=== PATIENT | female | born 1950 | race Caucasian/White ===

== ENCOUNTER 2022-10-08 10:01 | Outpatient (CLI) | payer MEDICARE, SELFPAY ==
[2022-10-08 12:50] LABS: Albumin* 4.4 g/dL (3.3-5.0); Chloride* 109 mmol/L (96-114)
[2022-10-08 12:51] LABS: Potassium* 4.1 mmol/L (3.6-5.1); Sodium* 144 mmol/L (135-149)
[2022-10-08 12:53] LABS: Alkaline Phosphatase* 49 U/L (40-150); Aspartate Amino Transferase* 31 U/L (12-35); Bilirubin Total* 1.1 mg/dL (0.1-1.5); Blood Urea Nitrogen* 23 mg/dL (7-30); Carbon Dioxide* 26 mmol/L (20-32); Creatinine* 0.8 mg/dL (0.5-1.5); Estimated Glomerular Filt Rate 78 ml/min; Glucose* 82 mg/dL (60-115); Total Protein* 7.2 g/dL (6.0-8.3)
[2022-10-08 12:54] LABS: Alanine Aminotransferase* 27 U/L (4-35); Calcium* 9.8 mg/dL (8.4-10.6)
== END 2022-10-08 10:02 | disposition home or self-care (01) ==
PROVIDERS: PCP Internal Medicine; Visit Provider Internal Medicine
DX: L65.9 Nonscarring hair loss, unspecified (principal); I10 Essential (primary) hypertension
CPT/HCPCS: 80053; 84443

== ENCOUNTER 2023-02-04 09:10 | Outpatient (CLI) | payer MEDICARE, SELFPAY | END 2023-02-04 09:11 | disposition home or self-care (01) | LOC: NFLDREF 18:39 | PROVIDERS: PCP Internal Medicine; Referring Provider Internal Medicine; Visit Provider Internal Medicine | DX: E78.5 Hyperlipidemia, unspecified (principal) | CPT/HCPCS: 80053; 80061 ==

== ENCOUNTER 2023-03-24 10:45 | Outpatient (RCR) | payer MEDICARE, SELFPAY ==
--- NOTE | 2023-02-25 09:32 | PT.OPEX ---
PT [place] Outpatient Eval INITIAL EVAL MEDICARE REQUIRES SIGNATURE PT [facility] Outpatient Eval Start: 02/25/23 07:38 Freq: Status: Active Protocol: Document 02/25/23 07:39 TRESA (Rec: 02/25/23 09:28 TRESA [id number]) E-signed By ULISES [facility] Insurance Information Recert Due Date 05/21/23 Insurance Name Medicare B,[employer] Medical Diagnosis shoulder bursitis Treating Diagnosis R shoulder pain muscle weakness limited ROM Referring MD chantal bains Subjective Subjective Radha comes into clinic dealing with R shoulder pain. Did have breast cancer on her left side so does end up using her R arm more. Overall it is dull and deep pain. States this has been going on several months now and started to feel the ache, after scratching her partners back. Does have some concern if its related to her heart condition . IT does not make her stop doing anything but she can notice the slight nag. When she reaches into the fridge for things or overhead she is noticing she is using the left hand more. Sleeping initially pain when laying on the R side but is improved. Pain Comments 3/10 is the worst Current Work Status Retired Precautions Treatment Precautions/Contraindications CAD, hx breast cancer, stent placement Objective Other/Pertinent Objective SHOULDER AROM WNL B but more effort on the R side to get to end ranges NECK/SHOULDER MMT: WNL L Shoulder shrug: R 5/5 Shoulder flexion: R 4/5 Shoulder abduction: R 4/5 Shoulder External Rotation: R 4-/5 Shoulder Internal Rotation: R 4+/5 Elbow flexion: R 5/5 Elbow extension R 5/5 SPECIAL TEST Shoulder impingement HawkinsKeviny Test: - Neer Test: - Abdifatah Test: - Horizontal Adduction Test:- Painful arc 60-120 scaption: + Rotator cuff tendonitis Speeds test(biceps): - Empty can(Supra): - Lift off test (subscap):- JOINT MOBILITY/PALPATION increased R>L upper trap tightness TX: STM upper trap and cervical extensors scaption ag x 20 B shoulder alphabet x 26 scap set x 20, adding red tb x 20 Assessment Assessment/Impression .assess Pt is a 73 yr old female who presents with concerns of R shoulder pain . . Patient also has notable objective findings including limited painfree ROM, , decreased strength also likely contributing to the problem. Patient is a good candidate for skilled therapy to target deficits described above. Skilled PT intervention is necessary for use of therapeutic exercise manual therapy, neuromuscular re- education, , and therapeutic activity. Functional impairments include difficulty with: reaching away from body , sleeping, lifting . See appropriate sections of PT eval for complete list of goals and POC. D/C plan and criteria is for pt to achieve the goals as listed below or until max rehab potential is met. 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 LTG Patient will report or demonstrate the ability to have 4+/5 strength in all shoulder and elbow planes for household and recreational activity within8 weeks. Pt will be independent with HEP within 8 weeks to allow for independence and continued improvement past formal therapy Pt will be able to demonstrate / report ability to lift #10 from counter height to overhead without pain within 8 weeks, for household and work activity. Coordination/Communication With Referral Source Treatment Plan/Direct Interventions Joint Mobilization,Manual Therapy,Neuromuscular Re-ed, Therapeutic Activities, Therapeutic Exercises Frequency/Duration 1-2 x week for 6-12 weeks Patient Will Be Discharged From Therapy Completion of LTG(s), Independent w/HEP Evaluation Billing Untimed Code Treatment Minutes 25 Complexity Low Certification Information Initial Certification Date 02/25/23 Ending Certification Date 05/21/23 Physician Comment/Change : Physician NPI Number #
== END 2023-05-03 11:29 | disposition home or self-care (01) ==
PROVIDERS: PCP Internal Medicine; Visit Provider Internal Medicine
DX: M75.50 Bursitis of unspecified shoulder (principal); M25.511 Pain in right shoulder; M62.81 Muscle weakness (generalized); Z51.89 Encounter for other specified aftercare
CPT/HCPCS: 97110; 97140; 97161

== ENCOUNTER 2023-09-02 07:33 | Day surgery (SDC) | payer MEDICARE, SELFPAY ==
[2023-09-02] VITALS (23 sets, daily range): BP systolic 101–173; BP diastolic 47–87; PULSE 58–84; RESP 14–20; TEMP 35.6–36.7; O2SAT 93–100; BMI 26.9
[2023-09-02] MEDS: LACTATED RINGERS 1000 ML 1,000 ML 100 ML IV ×2 (08:40→10:11)
[2023-09-02] MEDS: ACETAMINOPHEN 500 MG TABLET 1000 MG PO ×3 (08:40→20:44)
[2023-09-02] MEDS: OXYCODONE (CR) 10 MG TAB.ER.12H PO (08:40)
[2023-09-02] MEDS: MIDAZOLAM HCL 1 MG/ML inj IVP (08:45)
[2023-09-02] MEDS: fentaNYL 100 MCG/2 ML inj IVP (08:45)
[2023-09-02] MEDS: TRANEXAMIC ACID 100 MG/ML INJ 1000 MG IV (09:02)
[2023-09-02] MEDS: CEFAZOLIN 2 GM INJ IVP (09:05)
[2023-09-02] MEDS: SODIUM CHLORIDE 0.9 % (FLUSH) 10 ML SYRINGE IVF (09:09)
--- NOTE | 2023-09-02 09:09 | SUR.PREOP ---
TIME?OUT:?right hip PT/RN/MDA?VERIFICATION?OF?SURGICAL?SITE,?PROCEDURE,?AND?CONSENT OBTAINED?PRIOR?TO?INVASIVE?PROCEDURE.
--- NOTE | 2023-09-02 09:15 | CRLHL7_ITS ---
For Patients: As a result of the Cures Act, medical imaging exams and procedure reports are released immediately into your electronic medical record. You may view this report before your referring provider. If you have questions, please contact your health care provider. Indication: Hip replacement surgery Technique: AP hip fluoroscopic images. Fluoroscopy time 41.5 seconds. Findings/Impression: Hardware from a right total hip arthroplasty is in satisfactory position. Dictated by Dragan Ferrer MD @ 09/02/2023 11:15:28 AM (Electronically Signed)
--- NOTE | 2023-09-02 10:17 | CRLHL7_ITS ---
For Patients: As a result of the Cures Act, medical imaging exams and procedure reports are released immediately into your electronic medical record. You may view this report before your referring provider. If you have questions, please contact your health care provider. Indication: Postop MARLO Technique: AP hip centered pelvis and lateral view right hip Findings/Impression: Hardware from a right total hip arthroplasty is in satisfactory position. Bone alignment is normal. No sign of acute fracture. Postop changes are within normal limits. Dictated by Dragan Ferrer MD @ 09/02/2023 12:01:45 PM (Electronically Signed)
--- NOTE | 2023-09-02 10:20 | PM.ORPRC ---
Procedure Note Date of procedure: 09/02/23 Procedure: PREOPERATIVE DIAGNOSIS: Right hip osteoarthritis POSTOPERATIVE DIAGNOSIS: Right hip osteoarthritis NAME OF OPERATION: Right total hip arthroplasty SURGEON: Carl Bullock MD ROTARY SHEAR OPERATOR: Eliida Bishop PA-C, CIRILO Abdul IMPLANTS: 1. [employer] [place] # 52 sector ingrowth cup 2. 36 x 52 +4 neutral polyethylene 3. Actis # 6 standard collared ingrowth stem 4. 36 + 1.5 ceramic femoral head ANESTHESIA: General ESTIMATED BLOOD LOSS: 400 cc COMPLICATIONS: None SPECIMENS: None DRAINS: None PREOPERATIVE ANTIBIOTICS: Ancef 1 grams INDICATIONS: The patient is a 73-year-old with a longstanding history of severe, unrelenting right hip pain secondary to end-stage right hip osteoarthritis. Despite appropriate nonoperative management, including activity modification, use of an assist device, anti-inflammatories, [id number] pain medication, physical therapy and injections, they continue to have pain and disability. Operative intervention was offered. The risks, benefits and expected outcomes were discussed in detail. These included but were not limited to: Infection, bleeding, injury to blood vessel or nerve, venous thromboembolism. All questions were answered to their satisfaction. Use of an conservation assistant was necessary throughout the case for patient positioning and safety, soft tissue retraction and closure. PROCEDURE: The patient was placed supine on the [place] table. General anesthesia was administered. The conservation assistant made sure the patient was properly positioned. The right hip was prepped and draped in the usual sterile fashion. The image intensifier was brought in for a perfect AP pelvis and a perfect double tear drop AP view of each hip which were used for intraoperative templating with our fluoroscopic guide. An oblique incision was made 3 cm distal and 3 cm lateral to the anterior superior iliac spine. The conservation assistant retracted the soft tissues to protect them. Subcutaneous dissection was taken with electrocautery to the superficial fascia. The fascia was divided in line with the incision. Blunt dissection was carried medially to the tensor fascia kyara and sartorius interval. Deep dissection was carried with electrocautery. The circumflex vessels were cauterized and divided. The capsule was exposed and then divided in a T-fashion, tagged with #1 Ethibond sutures. Retractors were placed in the joint, held by the conservation assistant. The corkscrew was placed in the femoral head. The neck cut was made in the subcapital region. We made a second neck cut more distal. The napkin ring of bone was removed. The femoral head was removed intact. Acetabular retractors were placed, held by the conservation assistant. The labrum was sharply debrided. The capsule was released. The 43 mm reamer was used to the true medial wall. We then enlarged in 2 mm increments using the image intensifier for our reamer placement. We impacted the cup which had excellent purchase. We placed the hole eliminator and the polyethylene. Attention was then turned to the proximal femur. The limb was placed in 140 degrees of external rotation, maximum extension and adduction. A significant amount of time was spent releasing the capsule to allow us to deliver the femur into the wound and complete the femoral side safely. Retractors were held by the conservation assistant throughout the femoral preparation. The box stamper and canal finder were used. Broaches were used to a stable size. The calcar reamer was used. Trial components were placed. The hip was reduced and was found to be stable with appropriate soft tissue tension. Length and offset had been nicely restored using the image intensifier and our fluoroscopic guide. Trial components were removed. The stem was impacted. We placed the femoral head. Again, the hip was reduced and was found to be stable with appropriate soft tissue tension. Length and offset had been nicely restored. The conservation assistant did a three minute dilute Betadine solution soak. The conservation assistant irrigated the wound with 3 liters of normal saline via pulse lavage. The conservation assistant repaired the anterior capsule with a #1 Vicryl and our previously placed Ethibond sutures. The conservation assistant closed the fascia over the tensor fascia kyara with a #1 PDO Stratafix, subcutaneous tissues with 2-0 Vicryl, skin with a running 3-0 Stratafix and glue. A dry dressing was applied by the conservation assistant. Sponge and needle counts were correct x 2. The patient tolerated the procedure well; there were no apparent complications. They were awakened and extubated in the operating room, sent to the Post-Anesthesia Care Unit in satisfactory condition. PLAN: 1. The patient will be mobilized with physical therapy, weight-bearing as tolerates 2. Xarelto x 5 days then aspirin x 30 days will be used for DVT prophylaxis 3. The patient will be discharged once medically appropriate
--- NOTE | 2023-09-02 11:03 | P.ANES_ITS ---
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
--- NOTE | 2023-09-02 11:09 | W.ANESCHARGE ---
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
--- NOTE | 2023-09-02 11:11 | P.NB_ITS ---
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 Images saved: Yes Medications given in 5ml increments after negative aspiration: Ropivicaine %: 0.5 mL: 30 Needle gauge: 20 Decadron (mg): 10 Precedex (mcg): 25 Patient tolerated procedure well: Yes Additional comments: Needle noted below psoas tendon needle noted adjacent to LFCN Block Charges Block Charge (with Pro Fee): Other Periph Nerve Block Use of Ultrasound Machine for Block: Yes- US Guidance/pain block
--- NOTE | 2023-09-02 11:47 | SUR.OPER ---
PATIENT QUESTIONS ANSWERED SATISFACTORILY PREOPERATIVELY. PATIENT BROUGHT TO OR #3 PER CART AFTER ADMINISTRATION OF A BLOCK. Patient positioned supine on OR #3 bed. The perioperative team supported arms bilaterally on arm boards. Final approval of positioning by surgeon
[2023-09-02] MEDS: OXYCODONE 5 MG TABLET PO (12:23)
--- NOTE | 2023-09-02 12:59 | PM.IMCN1 ---
Date of Consult Patient: [facility] Patient Consult date: 09/02/23 Requesting Physician: Orthopedics Primary Care Provider: Andre Love MD Consult Narrative Reason for consult: Medical management Narrative: Radha Fleming is a 73 year old female past medical history significant for hypertension, hyperlipidemia, anxiety, renal insufficiency, osteoarthritis bilateral hips is POD#0 status post right total hip arthroplasty with Dr. Bullock. Patient reports pain is currently adequately managed following oral oxycodone. Denies headache or dizziness. Denies nausea, tolerating oral ice chips. There have been no perioperative complications reported. Total estimated blood loss reported as 400 mL. Updated and reviewed the active medical problems, past medical history, past surgical history, social history, allergies and medications in our electronic EMR. Review of Systems Narrative: REVIEW OF SYSTEMS: Complete review of systems performed and negative unless otherwise stated in HPI or below. PFSH PFSH Medical History Hip pain ?M25.559 - Pain in unspecified hip (ICD-10) Deltoid bursitis ?M75.50 - Bursitis of unspecified shoulder (ICD-10) Hair loss ?L65.9 - Nonscarring hair loss, unspecified (ICD-10) History of pulmonary embolism ?Z86.711 - Personal history of pulmonary embolism (ICD-10) History of malignant neoplasm of breast (2004) ?Z85.3 - Personal history of malignant neoplasm of breast (ICD-10) History of frequent urinary tract infections ?Z87.440 - Personal history of urinary (tract) infections (ICD-10) Anxiety ?F41.9 - Anxiety disorder, unspecified (ICD-10) Surgical History History of insertion of stent into coronary artery bypass graft ?Z95.1 - Presence of aortocoronary bypass graft (ICD-10) History of tonsillectomy (1951) ?Z90.89 - Acquired absence of other organs (ICD-10) History of lumbar laminectomy (1975) ?Z98.890 - Other specified postprocedural states (ICD-10) History of cervical spinal surgery (1991) ?Z98.890 - Other specified postprocedural states (ICD-10) History of breast reconstruction (2005) ?Z98.890 - Other specified postprocedural states (ICD-10) History of bilateral mastectomy (11/2004) ?Z90.13 - Acquired absence of bilateral breasts and nipples (ICD-10) Family History Mother Coronary artery disease Father Pulmonary embolism Maternal Grandmother Stomach cancer Social History Narrative: does not use illicit drugs, nonsmoker, occasional alcohol consumption What is your current living situation?: I presently have a place to live Problems where you live: no known problems In the past 12 months, utilities in danger of being shut off: no In past 12 months, lack of transportation kept you from medical appts, meetings, work, or getting things needed for daily living: no In the past 12 mos, have been you worried that your food would run out before you had money to buy more?: never true In the past 12 mos, the food you bought just didn't last and you didn't have money to buy more?: never true Highest level of school completed/degree received: decline to answer Smoking Status: Never smoker How often do you have a drink containing alcohol: 2-4 times a month Alcohol type: wine How many standard drinks containing alcohol do you have on a typical day: 1 or 2 AUDIT-C Alcohol total score: 2 Non-prescribed substance use: denies use Caffeine: No How often does anyone, including family, friends and others, physically hurt you: never How often does anyone, including family, friends and others, insult or talk down to you: never How often does anyone, including family, friends and others, threaten you with harm: never How often does anyone, including family, friends and others, scream or curse at you: never Little interest or pleasure in doing things: more than half the days Feeling down, depressed, or hopeless: several days service: No Meds Home Medications and Allergies Home Medications Medication Instructions Recorded Confirmed Type aspirin 81 mg tablet,delayed 81 mg PO Q48H 10/08/22 09/02/23 History release nitroglycerin 0.4 mg sublingual 0.4 mg buccal Q5M PRN 10/08/22 09/02/23 History tablet oxybutynin chloride 5 mg tablet 5 mg PO Q48H 02/15/23 09/02/23 History atorvastatin 40 mg tablet 40 mg PO HS Hyperlipidemia 09/02/23 09/02/23 History valsartan 40 mg tablet 40 mg PO DAILY 09/02/23 09/02/23 History Allergies Allergy/AdvReac Type Severity Reaction Status Date / Time influenza A (H1N1) virus Allergy Intermediate Chills Verified 09/02/23 07:50 vaccine [id number] 2008 [From influenza A (H1N1)] vaccine adjuvant system, Allergy Intermediate Chills Verified 09/01/23 13:25 AS01B lipo [From Shingrix (PF)] varicella-zoster virus Allergy Intermediate Chills Verified 09/01/23 13:25 glycoprotein [From Shingrix (PF)] terconazole Allergy Mild Hives Verified 09/01/23 13:25 metoclopramide Allergy Unknown Verified 09/01/23 13:25 nickel Allergy Unknown Verified 09/01/23 13:25 perfume Allergy Unknown Verified 09/02/23 07:50 Exam Narrative: Exam Narrative: PHYSICAL EXAM General: Pleasant, conversant, NAD HEENT: Normocephalic, atraumatic, sclera white, EOMI, oral mucosa moist Cardiovascular: RRR, S1S2. No pitting edema Pulmonary: CTA bilaterally without rhonchi, rales, expiratory wheezes. No dyspnea Neurological: Alert, answering questions appropriately, cranial nerves intact, no focal findings Extremities: No gross joint deformity or swelling. Postoperative dressing in place, dry. Neurovascularly intact Skin: Warm, dry. Const: Vital Signs, click to edit/add: Vital Signs - 24 hr 09/02/23 08:24 09/02/23 08:45 09/02/23 10:57 Temperature 98.0 F 97.3 F L Pulse Rate 61 65 84 Respiratory Rate 20 20 16 Blood Pressure 173/74 H 170/84 H 142/62 H Pulse Oximetry 98 98 96 Oxygen Delivery Me thod Room Air Nasal Cannula Room Air Oxygen Flow Rate 3 09/02/23 11:00 09/02/23 11:05 09/02/23 11:10 Temperature Pulse Rate 73 71 74 Respiratory Rate 20 20 18 Blood Pressure 130/57 L 121/50 L 127/56 L Pulse Oximetry 93 95 98 Oxygen Delivery Me thod Room Air Room Air Room Air Oxygen Flow Rate 09/02/23 11:15 09/02/23 11:20 09/02/23 11:25 Temperature 97.2 F L Pulse Rate 76 76 74 Respiratory Rate 16 18 14 Blood Pressure 129/59 L 129/63 130/59 L Pulse Oximetry 98 96 98 Oxygen Delivery Me thod Room Air Room Air Room Air Oxygen Flow Rate 3 Assessment and Plan Assessment and plan (1) Osteoarthritis of right hip: Problem comment: -POD#0 status post right total hip arthroplasty -perioperative management, including pain management, per Orthopedic surgery team -discharge planning including physical therapy, anticoagulation per Orthopedic surgery team Status: Acute Plan Reviewed chronic medical comorbidities. Blood pressures adequate postoperatively. May consider resuming antihypertensives in the morning if necessary. Otherwise recommend resuming remainder of home medications upon discharge. Hospital medicine team will sign off. Please contact our service with any questions or concerns.
--- NOTE | 2023-09-02 14:12 | PC.NURSE ---
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 Bullock. Please see initial assessment from PACU and frequent post op VS per protocol. Pt had jello with 5 mg oxycodone for pain 3 of 10 with relief. Pain has decreased per pt report. Eval by Gerard in PT, pt did well and is up in recliner. Knee high teds, bilateral plexipulses, bed/chair alarms per fall prevention protocol, knee locked out, active ice to CDI incision on right hip. Sig other Robby present at bedside. PHI and pt belonging form completed. Report will be provided to oncoming evening shift RN.
[2023-09-02] MEDS: LACTATED RINGERS 1000 ML 1,000 ML 75 ML IV (14:30)
[2023-09-02] MEDS: CEFAZOLIN 1 GM in 0.9 % SODIUM CHLORIDE Mini-bag 100 ML IVPB (15:25)
--- NOTE | 2023-09-02 18:46 | PC.NURSE ---
Summary of shift [id number] - Pt alert, oriented, and pleasant. Pt reported feeling dry and tolerated ice chips and fluids by mouth. Pt denied pain and pain medication during shift. Dressing clean, dry, intact and ice pack present. Patient up to bathroom with 1 assist, walker, gait belt. Activity tolerated well with no increase or report of pain. Regular diet tolerated. VSS, afebrile. Pt resting in bed comfortably at end of shift.
[2023-09-02] MEDS: SENNOSIDES 1 TAB TABLET 2 TAB PO (20:44)
[2023-09-03] MEDS: CEFAZOLIN 1 GM in 0.9 % SODIUM CHLORIDE Mini-bag 100 ML IVPB (00:22)
[2023-09-03] MEDS: OXYCODONE 5 MG TABLET PO (00:22)
[2023-09-03] MEDS: ATORVASTATIN CALCIUM 40 MG TABLET PO (00:22)
[2023-09-03 03:00] VITALS: BP 124/56; PULSE 77; RESP 16; TEMP 36.8; O2SAT 95
[2023-09-03] MEDS: ACETAMINOPHEN 500 MG TABLET 1000 MG PO (04:47)
[2023-09-03 06:32] LABS: Hematocrit 32.3 % (33.0-51.0); Hemoglobin* 10.8 gm/dL (12.0-16.0); Immature Granulocytes Pct Auto 0.1 %; Lymphocytes Percent Auto 7.5 % (20-44); Mean Corpuscular HGB Conc 33 gm/dL (32-36); Mean Corpuscular Hemoglobin 32 pg (26-34); Mean Corpuscular Volume 95 fL (80-100); Monocytes Percent Auto 7.5 % (0.0-11.0); Neutrophils Percent Auto 84.9 % (42.0-72.0); Platelet Count* 207 K/uL (140-440); RDW Coefficient of Variation % 12.2 % (11.5-15.5); Red Blood Count 3.39 m/uL (4.00-5.20); White Blood Count* 12.32 K/uL (4.50-11.00)
[2023-09-03 06:49] LABS: Slide Review Reflex No
[2023-09-03 06:51] LABS: Potassium* 4.4 mmol/L (3.6-5.1); Sodium* 140 mmol/L (135-149)
[2023-09-03 06:54] LABS: Blood Urea Nitrogen* 13 mg/dL (7-30); Creatinine* 0.6 mg/dL (0.5-1.5); Est. Creatinine Clearance* 39.04; Estimated Glomerular Filt Rate 94 ml/min
[2023-09-03 07:00] VITALS: BP 145/54; PULSE 86; RESP 16; TEMP 36.7; O2SAT 100
--- NOTE | 2023-09-03 08:22 | PC.NURSE ---
Patient pleasant, alert and oriented. Ambulated to bathroom with assist of one, gait belt and walker. Dressing to right hip CD&I. Rated pain in her right thigh between 2-5/10. PRN oxycodone given x1 and gave relief.
[2023-09-03] MEDS: RIVAROXABAN 10 MG TABLET PO (08:53)
[2023-09-03] MEDS: SENNOSIDES 1 TAB TABLET 2 TAB PO (08:53)
--- NOTE | 2023-09-03 09:55 | PC.SOCIAL ---
Discharge Planning: Met with patient in room. Patient states that her partner will be taking her back home and caring for her. No questions or concerns. Social work to follow up as needed.
--- NOTE | 2023-09-03 09:59 | PM.ORPN ---
Subjective Subjective Time Seen by Provider: 07:10 Date Seen: 09/03/23 Principal diagnosis: Status post right hip replacement Interval history: The patient is comfortable this morning. She has been ambulating. She states this has been going well. She plans to discharge today. Ortho Exam Narrative Exam Narrative: Alert and oriented x3. Patient is in no acute distress. Converses without labored breathing. Hearing is grossly intact. Ambulates with a walker. Examination of the right hip shows the dressing is intact. Minimal soft tissue edema. No ecchymosis. CMS is intact right lower extremity. Quad strength 5/5. Bilateral calves are soft and nontender. Const Vital Signs, click to edit/add: Vital Signs - 24 hr 09/02/23 10:57 09/02/23 11:00 09/02/23 11:05 Temperature 97.3 F L Pulse Rate 84 73 71 Pulse Rate [Pulse Oximeter] Respiratory Rate 16 20 20 Blood Pressure 142/62 H 130/57 L 121/50 L Blood Pressure [Right Arm] Pulse Oximetry 96 93 95 Oxygen Delivery Method Room Air Room Air Room Air Oxygen Flow Rate 09/02/23 11:10 09/02/23 11:15 09/02/23 11:20 Temperature Pulse Rate 74 76 76 Pulse Rate [Pulse Oximeter] Respiratory Rate 18 16 18 Blood Pressure 127/56 L 129/59 L 129/63 Blood Pressure [Right Arm] Pulse Oximetry 98 98 96 Oxygen Delivery Method Room Air Room Air Room Air Oxygen Flow Rate 09/02/23 11:25 09/02/23 11:35 09/02/23 12:00 Temperature 97.2 F L 96.2 F L Pulse Rate 74 65 Pulse Rate [Pulse Oximeter] 62 Respiratory Rate 14 16 16 Blood Pressure 130/59 L Blood Pressure [Right Arm] 126/58 L 113/55 L Pulse Oximetry 98 99 Oxygen Delivery Method Room Air Room Air Room Air Oxygen Flow Rate 3 09/02/23 12:15 09/02/23 12:30 09/02/23 13:00 Temperature Pulse Rate Pulse Rate [Pulse Oximeter] 62 60 64 Respiratory Rate 16 16 16 Blood Pressure Blood Pressure [Right Arm] 122/60 114/87 101/81 Pulse Oximetry 100 99 97 Oxygen Delivery Method Room Air Room Air Room Air Oxygen Flow Rate 09/02/23 13:30 09/02/23 13:35 09/02/23 14:00 Temperature Pulse Rate Pulse Rate [Pulse Oximeter] 58 L 58 L 72 Respiratory Rate 16 16 16 Blood Pressure Blood Pressure [Right Arm] 119/47 L 121/51 L 121/67 Pulse Oximetry 96 99 Oxygen Delivery Method Room Air Room Air Oxygen Flow Rate 09/02/23 15:00 09/02/23 16:00 09/02/23 17:00 Temperature 96.1 F L Pulse Rate Pulse Rate [Pulse Oximeter] 76 68 79 Respiratory Rate 16 16 16 Blood Pressure Blood Pressure [Right Arm] 112/50 L 110/50 L 117/53 L Pulse Oximetry 97 99 100 Oxygen Delivery Method Room Air Room Air Room Air Oxygen Flow Rate 09/02/23 19:00 09/02/23 22:58 09/02/23 23:00 Temperature 97.3 F L 97.6 F Pulse Rate Pulse Rate [Pulse Oximeter] 77 81 81 Respiratory Rate 18 18 18 Blood Pressure Blood Pressure [Right Arm] 125/51 L 131/55 L Pulse Oximetry 95 95 Oxygen Delivery Method Room Air Room Air Oxygen Flow Rate 09/03/23 03:00 09/03/23 07:00 09/03/23 07:00 Temperature 98.2 F 98.1 F Pulse Rate Pulse Rate [Pulse Oximeter] 77 86 86 Respiratory Rate 16 16 16 Blood Pressure Blood Pressure [Right Arm] 124/56 L 145/54 H Pulse Oximetry 95 100 Oxygen Delivery Method Room Air Room Air Oxygen Flow Rate Assessment and Plan Assessment and plan (1) Status post right hip replacement: Problem details: 09/02/2023 Status: Acute Assessment and Plan: Plan for discharge is today to home if they meet discharge criteria. DVT prophylaxis includes Xarelto 10 mg daily for total of 5 days, then aspirin 81 mg twice daily for 30 days, Albert stockings x1 month may remove for 1 hr per day, frequent ambulation Remove dressing 1 week. Observe wound and phone Orthopedics with any questions or concerns Use Ice on operative hip unrestricted. Return to clinic in 1 week with PA for a wound check Return to clinic in 6 weeks with surgeon Minimize narcotic use. Wean off and discontinue soon as possible. Activities as tolerated. No strenuous activity. Attend outpt PT
== END 2023-09-03 10:45 | disposition home or self-care (01) ==
LOC: OR 07:34 → MEDSURG 07:36
PROVIDERS: PCP Internal Medicine; Visit Provider Orthopaedic Surgery
PROC: (CPT 27130; principal; 2023-09-02 09:15)
DX: M16.11 Unilateral primary osteoarthritis, right hip (principal); G89.18 Other acute postprocedural pain; I10 Essential (primary) hypertension; Z86.711 Personal history of pulmonary embolism
CPT/HCPCS: 27130; 01214; 36415; 64450; 73501; 76000; 76942; 82565; 84132; 84295; 84520; 85025; 86850; 86900; 86901; 94761; 97110; 97116; 97161; 97165; 97530; 97535; 99100; A9270; C1776; J0330; J0690; J1100; J1170; J2250; J2371; J2405; J2704; J2710; J2795; J3010; J7120

== ENCOUNTER 2023-10-07 08:45 | Outpatient (RCR) | payer MEDICARE, SELFPAY | END 2023-11-09 16:29 | disposition home or self-care (01) | PROVIDERS: PCP Internal Medicine; Visit Provider Orthopaedic Surgery | DX: M16.0 Bilateral primary osteoarthritis of hip (principal); Z96.643 Presence of artificial hip joint, bilateral; M25.551 Pain in right hip; M25.552 Pain in left hip; M62.81 Muscle weakness (generalized); Z51.89 Encounter for other specified aftercare | CPT/HCPCS: 97110; 97116; 97161; 97164; 97530 ==

== ENCOUNTER 2024-02-22 09:44 | Outpatient (CLI) | payer MEDICARE, SELFPAY ==
--- OUTSIDE RECORDS SUMMARY | 2024-02-22 09:47 | XMS_ITS | Clinical Summary ---
Author Name Unknown Organization [facility] Address [place], [place] [address] Care Team Providers Care Shipfitters Supervisor Name Role Phone Andre Love MD Primary Care Provider Allergies Active Allergy Reactions Criticality Noted Date Comments Adhesive Tape Rash Medium 10/05/2006 Latex *Unknown 05/25/2018 Metoclopramide Other - Describe In Comment Field 10/05/2006 hyperactive Terconazole Itching 10/05/2006 Medications Medication Sig Dispensed Refills Start Date End Date Status Glucosamine-Chondr oitin (OSTEO BI-FLEX) 250-200 mg tablet Take 1 tablet by mouth once daily. Active artificial tears, PEG 400-HPM-Gly, (EYE DROP TEARS) 1-0.2-0.2 % eye drops Place 1 Drop into both eyes at bedtime if needed for Dry Eyes. Thera-Tears eye drops Active artificial tears (PURALUBE) 85-15 % ophth ointment Place 1 Strip into the eye(s) at bedtime. Active atorvastatin (LIPITOR) 40 mg tabletIndications: Acute non-ST elevation myocardial infarction (NSTEMI) (HC) Take 1 tablet by mouth once daily in the evening. 30 tablet 2 05/25/2018 Active nitroglycerin (NITROSTAT) 0.4 mg sublingual tabletIndications: Acute non-ST elevation myocardial infarction (NSTEMI) (HC) Place 1 tablet under the tongue every 5 minutes if needed for Chest Pain (up to 3 doses). 25 tablet 2 05/25/2018 Active aspirin chewable 81 mg chewable tabletIndications: Acute non-ST elevation myocardial infarction (NSTEMI) (HC) Take 1 tablet by mouth once every other day. Take indefinitely 100 tablet 03/01/2019 Active clopidogrel (PLAVIX) 75 mg tabletIndications: Acute non-ST elevation myocardial infarction (NSTEMI) (HC) TAKE 1 TABLET BY MOUTH EVERY MORNING. TAKE FOR 1 YEAR MINIMUM 90 tablet 05/22/2019 Active oxybutynin XL (DITROPAN XL) 5 mg CR tabletIndications: Urinary frequency Take 1 tablet by mouth once daily. 90 tablet 3 05/13/2020 Active Active Problems Problem Noted Date Diagnosed Date Acute non-ST elevation myocardial infarction (NS ROSY) 05/25/2018 History of breast cancer 05/25/2018 History of pulmonary embolism 05/25/2018 Arteriosclerotic heart disease (ASHD) 05/25/2018 Overview: - 05/24/18 NSTEMI, cor angio with 90% mid RCA; s/p MONICA x 1 Renal insufficiency 11/14/2011 Overview: Due to eclampsia in 1976 with her 2nd With subsequent DIC and XS bleeding Pulmonary embolism 11/14/2011 Overview: With eclampsia and DIC in 1976 during 2nd pregnagcy Breast cancer 11/13/2011 Overview: Left breast with 5 axillary nodes and 1 chest wall node in 2003 S/p bilateral mastectomy, chemotherapy and radiation therapy Family History Medical History Relation Name Comments Other Father pulmonary embol i at 60 Cancer Maternal Grandmother stomach cancer Heart Disease Mother [place] at 78 Relation Name Status Comments Father Maternal Grandmother Mother Social History Tobacco Use Types Packs/Day Years Used Date Smoking Tobacco: Never Smokeless Tobacco: Never Tobacco Cessation:Counseling Given: Yes Alcohol Use Standard Drinks/Week Comments Yes 0 (1 standard drink = 0.6 oz pur e alcohol) Sex and Gender Information Value Date Recorded Sex Assigned at Not on file Gender Identity Not on file Sexual Orientation Not on file Obstetrics History Para Term AB IAB SAB Ectopic Multiple Livin g Live Births 3 2 2 1 1 2 Date Outcome GA Total Labor Labor/2nd/3rd Weight Sex Delivery Anes PTL Ashia A1 A5 Name Cl in Term Term SAB Last Filed Vital Signs Vital Sign Reading Time Taken Comments Blood Pressure 143/78 03/01/2019 11:41 AM CDT Pulse 61 03/01/2019 11:41 AM CDT Temperature 36.4 ??C (97.6 ??F) 03/01/2019 1 1:41 AM CDT Respiratory Rate 18 03/01/2019 11:4 1 AM CDT Oxygen Saturation 100% 03/01/2019 11: 41 AM CDT Inhaled Oxygen Concentration - - Weight 71 kg (156 lb 9.6 oz) 03/01/2019 11:41 AM CDT Pt weighed with shoes on. Height 162.6 cm (5' 4) 05/25/2018 3:01 AM CDT Body Mass Index 26.88 05/25/2018 3:01 AM CDT Plan of Treatment Health Maintenance Due Date Last Done Comments Tdap 02/12/1960 Depression screening for age 12+ 1961 BMI (ht and wt on same day) for age 18+ 1967 Hepatitis C screening for age 18-79 1967 Tetanus booster 1969 Colonoscopy through age 75 1994 Zoster (shingles) series for age 50+ (1 of 2) 02/11/19 99 DEXA/DXA scan for age 65+ 2014 Medicare Wellness for age 65+ 2014 Pneumococcal series for age 65+ (1 of 1 - PCV) 014 Lipids for age 45-75 05/25/2023 05/25/2018 COVID-19 vaccine series ( - 2022-24 season) 3 Influenza for age 65+ 07/09/2024 Medical Devices Implanted Type Area Interactive Graphic Designer Device Identifier Shelf Expiration Date Model / Serial / Lot [id number] lnt Mammary 560-590cc [[id number]] [[id number]] Implanted:Qty: 1 on 10/05/[address] [facility] Explanted:at [facility] (Quantity not on file) [employer] [id number]# / [id number] / [id number] lnt Mammary 560-590cc [[id number] Implanted:Qty: 1 on 10/05/[address] [facility] Explanted:at [facility] (Quantity not on file) [employer] [facility] [id number]# / [id number] / [id number] Procedures Procedure Name Priority Date/Time Associated Diagnosis Comments LIPID PANEL Early AM 05/25/2018 4:54 AM CDT from Last 3 Months or Most Recently Relevant to Health Maintenance Results * Lipid Panel - In AM (05/25/2018 4:54 AM CDT) CHOLESTEROL,TOTAL 173 100 - 199 mg/dL 05/25/2018 5:48 AM CDT [facility] TRAL LABORATORY TRIGLYCERIDES 79 <150 mg/dL 05/25/2018 5:48 AM CDT [facility] [employer] [facility] TRAL LABORATORY HDL CHOLESTEROL 52 >40 mg/dL 8 5:48 AM CDT [facility] [employer] [facility] TRAL LABORATORY NON-HDL CHOLESTEROL 121 <145 mg/dl 05/25/2018 5:48 AM CDT [facility] [employer] [facility] TRAL LABORATORY CHOL/HDL RATIO 3.33 <4.50 05/25/2018 5:48 AM CDT [facility] [employer] [facility] TRAL LABORATORY LDL CHOLESTEROL 105 <=130 mg/dL 05/25/2018 5:48 AM CDT [facility] TRAL LABORATORY PROVIDER ORDERED STATUS RANDOM 05/25/2018 5:48 AM CDT [facility] TRAL LABORATORY Blood BLOOD SPECIMEN / Unknown Butterfly / Unknown 05/25/2018 4:54 AM CDT 05/25/2018 5:05 AM CDT Dandy Shah MD CHEMISTRY [facility] [address] [place] [address], [place] from Last 3 Months or Most Recently Relevant to Health Maintenance Advance Directives * Full Code (Latest Code Status on File) Date Activated Date Inactivated Comments 05/25/2018 4:27 AM 05/26/2018 3:21 PM Question Answer Comments Code Status Discussion: Discussed * Full Code Date Activated Date Inactivated Comments 10/05/2006 1:27 PM 10/05/2006 10:54 PM * Full Code Date Activated Date Inactivated Comments 10/05/2006 10:21 AM 10/05/2006 1:27 PM Care Teams Shipfitters Supervisor Relationship Specialty Start Date End Date Andre Love MD [address] [place] [id number] PCP - General Internal Medicine 05/30/18
== END 2024-02-22 09:45 | disposition home or self-care (01) ==
LOC: NFLDREF 09:45
PROVIDERS: PCP Internal Medicine; Visit Provider Internal Medicine
DX: I10 Essential (primary) hypertension (principal)
CPT/HCPCS: 80048

== ENCOUNTER 2024-03-07 06:01 | Day surgery (SDC) | payer MEDICARE, SELFPAY ==
[2024-03-07] VITALS (21 sets, daily range): BP systolic 98–149; BP diastolic 41–77; PULSE 55–82; RESP 16; TEMP 36.4–36.9; O2SAT 95–100; BMI 27.1
--- OUTSIDE RECORDS SUMMARY | 2024-03-07 06:04 | XMS_ITS | Clinical Summary ---
Author Name Unknown Organization [facility] Address [place], [place] [address] Care Team Providers Care Bevel Mill Operator Name Role Phone Andre Love MD Primary [...] Maternal Grandmother stomach cancer Heart Disease Mother [place] at 78 Relation Name Status Comments Father [...] 65+ 07/09/2024 Medical Devices Implanted Type Area Oil Driller Device Identifier Shelf Expiration Date Model / Serial / Lot [id number] lnt Mammary 560-590cc [[id number]] [[id number]] Implanted:Qty: 1 on 10/05/2006 at [facility] Explanted:at [facility] (Quantity not on file) [employer] [id number]# / [id number] / [id number] lnt Mammary 560-590cc [[id number] Implanted:Qty: 1 on 10/05/2006 at [facility] Explanted:at [facility] (Quantity not on file) [employer] [facility] [id number]# / [id number] / [id number] Procedures Procedure Name Priority Date/Time Associated Diagnosis Comments LIPID PANEL Early AM 05/25/2018 4:54 AM CDT from Last 3 Months or Most Recently Relevant to Health Maintenance Results * Lipid Panel - In AM (05/25/2018 4:54 AM CDT) CHOLESTEROL,TOTAL 173 100 - 199 mg/dL 05/25/2018 5:48 AM CDT [employer] LABORATORY-[facility] TRAL LABORATORY TRIGLYCERIDES 79 <150 mg/dL 05/25/2018 5:48 AM CDT [facility] [employer] [facility] TRAL LABORATORY HDL CHOLESTEROL 52 >40 mg/dL 8 5:48 AM CDT [facility] [employer] [facility] TRAL LABORATORY NON-HDL CHOLESTEROL 121 <145 mg/dl 05/25/2018 5:48 AM CDT [facility] [employer] [facility] TRAL LABORATORY CHOL/HDL RATIO 3.33 <4.50 05/25/2018 5:48 AM CDT [facility] [employer] [facility] TRAL LABORATORY LDL CHOLESTEROL 105 <=130 mg/dL 05/25/2018 5:[address] [facility] TRAL LABORATORY PROVIDER ORDERED STATUS RANDOM 05/25/2018 5:[address] [facility] TRAL LABORATORY Blood BLOOD SPECIMEN / Unknown Butterfly / Unknown 05/25/2018 4:54 AM CDT 05/25/2018 5:05 AM CDT Dandy Shah [facility] [address] [place] [address], [place] from Last 3 Months or Most [...] 10:21 AM 10/05/2006 1:27 PM Care Teams Bevel Mill Operator Relationship Specialty Start Date End Date Andre Love MD [address] [place] [id number] PCP - General Internal Medicine 05/30/18
[2024-03-07] MEDS: OXYCODONE (CR) 10 MG TAB.ER.12H PO (06:20)
[2024-03-07] MEDS: LACTATED RINGERS 1000 ML 1,000 ML 100 ML IV (06:20)
[2024-03-07] MEDS: SODIUM CHLORIDE 0.9 % (FLUSH) 10 ML SYRINGE IVF (06:20)
[2024-03-07] MEDS: ACETAMINOPHEN 500 MG TABLET 1000 MG PO ×3 (06:20→18:47)
[2024-03-07] MEDS: MIDAZOLAM HCL 1 MG/ML inj IVP (07:09)
[2024-03-07] MEDS: fentaNYL 100 MCG/2 ML inj IVP (07:09)
--- NOTE | 2024-03-07 07:15 | XR_ITS ---
Patient: OSWALDO GONSALEZ Facility:?[facility] Patient ID:?[id number] Site Patient ID:?[id number]. Site :?[id number] Study:?XRay-Hip Left 1V-03/07/2024 9:06:20 AM Ordering Physician:CHADWICK Final Report: INDICATION: Left total hip. TECHNIQUE: Two spot images of the pelvis and left hip are submitted. 69.5 seconds fluoro time. FINDINGS: Left MARLO components in place. Dictated by Bc Ellis MD @ 03/07/2024 11:18:21 AM Signed by:?Bc Ellis MD @03/07/2024 11:18:21 AM (Electronic Signature)
--- NOTE | 2024-03-07 07:21 | SUR.PREOP ---
TIME?OUT:?0709 PT/Tory BERNAL, RN/Domonique CUBA, A P SUPERVISOR/ Abisai CUBA MDA?VERIFICATION?OF?SURGICAL?SITE,?PROCEDURE,?AND?CONSENT OBTAINED?PRIOR?TO?INVASIVE?PROCEDURE.
[2024-03-07] MEDS: TRANEXAMIC ACID 100 MG/ML INJ 1000 MG IV (07:43)
[2024-03-07] MEDS: CEFAZOLIN 2 GM INJ IVP (07:43)
--- NOTE | 2024-03-07 08:43 | XR_ITS ---
Patient: OSWALDO GONSALEZ Facility:?[facility] Patient ID:?[id number] Site Patient ID:?[id number]. Site :?[id number] Study:?XRay-Hip Left Post op-03/07/2024 10:01:22 AM Ordering Physician:?Carl Bullock Final Report: Indication: Post op left MARLO Technique: AP hip centered pelvis and lateral view left hip Findings/Impression: Hardware from a left total hip arthroplasty is in satisfactory position. Bone alignment is normal. No sign of acute fracture. Postop changes are within normal limits. Dictated by Dragan Ferrer MD @ 03/07/2024 12:12:05 PM Signed by:?Dragan Ferrer MD @03/07/2024 12:12:05 PM (Electronic Signature)
--- NOTE | 2024-03-07 08:45 | P.ORPRC_ITS ---
Procedure Note Date of procedure: 03/07/24 Procedure: PREOPERATIVE DIAGNOSIS: Left hip osteoarthritis POSTOPERATIVE DIAGNOSIS: Left hip osteoarthritis NAME OF OPERATION: Left total hip arthroplasty SURGEON: Carl Bullock MD PIPE WASHER: Elidia Bishop PA-C, CIRILO Abdul IMPLANTS: 1. [employer] # 52 sector ingrowth cup 2. 36 x 52 +4 neutral polyethylene 3. Actis # 6 standard collared ingrowth stem 4. 36 + 1.5 ceramic femoral head ANESTHESIA: General ESTIMATED BLOOD LOSS: 450 cc COMPLICATIONS: None SPECIMENS: None DRAINS: None PREOPERATIVE ANTIBIOTICS: Ancef 1 g INDICATIONS: The patient is a 74-year-old with a longstanding history of severe, unrelenting left hip pain secondary to end-stage left hip osteoarthritis. Despite appropriate nonoperative management, including activity modification, use of an assist device, anti-inflammatories, [id number] pain medication, physical therapy and injections, they continue to have pain and disability. Operative intervention was offered. The risks, benefits and expected outcomes were discussed in detail. These included but were not limited to: Infection, bleeding, injury to blood vessel or nerve, venous thromboembolism. All questions were answered to their satisfaction. Use of an medical assistant dermatology was necessary throughout the case for patient positioning and safety, soft tissue retraction and closure. PROCEDURE: The patient was placed supine on the [place] table. General anesthesia was administered. The medical assistant dermatology made sure the patient was properly positioned. The left hip was prepped and draped in the usual sterile fashion. The image intensifier was brought in for a perfect AP pelvis and a perfect double tear drop AP view of each hip which were used for intraoperative templating with our fluoroscopic guide. An oblique incision was made 3 cm distal and 3 cm lateral to the anterior superior iliac spine. The medical assistant dermatology retracted the soft tissues to protect them. Subcutaneous dissection was taken with electrocautery to the superficial fascia. The fascia was divided in line with the incision. Blunt dissection was carried medially to the tensor fascia kyara and sartorius interval. Deep dissection was carried with electrocautery. The circumflex vessels were cauteri zed and divided. The capsule was exposed and then divided in a T-fashion, tagged with #1 Ethibond sutures. Retractors were placed in the joint, held by the medical assistant dermatology. The corkscrew was placed in the femoral head. The neck cut was made in the subcapital region. We made a second neck cut more distal. The napkin ring of bone was removed. The femoral head was removed intact. Acetabular retractors were placed, held by the medical assistant dermatology. The labrum was sharply debrided. The capsule was released. The 43 mm reamer was used to the true medial wall. We then enlarged in 2 mm increments using the image intensifier for our reamer placement. We impacted the cup which had excellent purchase. We placed the polyethylene. Attention was then turned to the proximal femur. The limb was placed in 140 degrees of external rotation, maximum extension and adduction. A significant amount of time was spent releasing the capsule to allow us to deliver the femur into the wound and complete the femoral side safely. Retractors were held by the medical assistant dermatology throughout the femoral preparation. The experimental box tester and canal finder were used. Broaches were used to a stable size. The calcar reamer was used. Trial components were placed. The hip was reduced and was found to be stable with appropriate soft tissue tension. Length and offset had been nicely restored using the image intensifier and our fluoroscopic guide. Trial components were removed. The stem was impacted. We placed the femoral head. Again, the hip was reduced and was found to be stable with appropriate soft tissue tension. Length and offset had been nicely restored. The medical assistant dermatology did a three minute dilute Betadine solution soak. The medical assistant dermatology irrigated the wound with 3 liters of normal saline via pulse lavage. The assist ant repaired the anterior capsule with a #1 Vicryl and our previously placed Ethibond sutures. The medical assistant dermatology closed the fascia over the tensor fascia kyara with a #1 PDO Stratafix, subcutaneous tissues with 2-0 Vicryl, skin with a running 3-0 Stratafix and glue. A dry dressing was applied by the medical assistant dermatology. Sponge and needle counts were correct x 2. The patient tolerated the procedure well; there were no apparent complications. They were awakened and extubated in the operating room, sent to the Post-Anesthesia Care Unit in satisfactory condition. PLAN: 1. The patient will be mobilized with physical therapy, weight-bearing as tolerates 2. Xarelto x 5 days then aspirin x 30 days will be used for DVT prophylaxis 3. The patient will be discharged once medically appropriate
--- NOTE | 2024-03-07 09:26 | P.ANES_ITS ---
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
--- NOTE | 2024-03-07 09:34 | SUR.PHASEI ---
xray for ap/lat left hip
--- NOTE | 2024-03-07 11:30 | W.PM.NB ---
Nerve Block Nerve Block Time Seen by Provider: 07:13 Date Seen: 03/07/24 Type of block requested by surgeon for post-operative analgesia: HIREN/LFCN Side: left Time out performed: Yes Verification of patient name: Yes Verification of date of : Yes Site marking: site marked Name of person performing procedure: Omar Continuous monitoring Was continuous monitoring of O2 sat, B/P, vehicle monitor technician, recorded every 15 minutes?: Yes Procedure Checklist: sterile prep, needles and gloves Ultrasound guided. Images saved: Yes Medications given in 5ml increments after negative aspiration: Ropivicaine %: 0.5 mL: 30 Needle gauge: 20 Decadron (mg): 10 Precedex (mcg): 25 Patient tolerated procedure well: Yes Additional comments: Needle noted below psoas tendon needle noted adjacent to LFCN Block Charges Block Charge (with Pro Fee): Other Periph Nerve Block Use of Ultrasound Machine for Block: Yes- US Guidance/pain block
--- NOTE | 2024-03-07 11:30 | W.ANESCHARGE ---
Anesthesia Charges Start Date/Time Anesthesia Start Date: 03/07/24 Anesthesia Start Time: 07:21 Stop Date/Time Anesthesia Stop Date: 03/07/24 Anesthesia Stop Time: 09:24 Summary Extremes of Age - Over 70 or under 1: MDA
[2024-03-07] MEDS: OXYCODONE 5 MG TABLET PO ×2 (12:03→18:47)
[2024-03-07] MEDS: CEFAZOLIN 1 GM in 0.9 % SODIUM CHLORIDE Mini-bag 100 ML IVPB ×2 (14:14→21:25)
--- NOTE | 2024-03-07 16:37 | P.IMCN_ITS ---
Date of Consult Patient: [facility] Patient Consult date: 03/07/24 Requesting Physician: Orthopedics Primary Care Provider: Andre Love MD Consult Narrative Reason for consult: CAD, hypertension Narrative: Radha Fleming is a 74 year old female with history of malignant breast cancer, anxiety, hypertension, and coronary artery disease who underwent an elective left total hip arthroplasty by Dr. Bullock today for severe osteoarthritis. She is doing well postoperatively and has no complaints. She mentions that she feels this experiences much better than when she had her other hip done. Review of Systems Status of ROS: Reports: 6 or more systems reviewed and unremarkable except as noted in History and below PFSH PFS Medical History (Updated 03/07/24 @ 16:48 by Winsome Kelley MD) Renal insufficiency ?N28.9 - Disorder of kidney and ureter, unspecified (ICD-10) Presence of drug coated stent in right coronary artery ?Z95.5 - Presence of coronary angioplasty implant and graft (ICD-10) Non-ST elevation (NSTEMI) myocardial infarction ?I21.4 - Non-ST elevation (NSTEMI) myocardial infarction (ICD-10) Urinary frequency ?R35.0 - Frequency of micturition (ICD-10) Hip pain ?M25.559 - Pain in unspecified hip (ICD-10) Deltoid bursitis ?M75.50 - Bursitis of unspecified shoulder (ICD-10) Hair loss ?L65.9 - Nonscarring hair loss, unspecified (ICD-10) History of pulmonary embolism ?Z86.711 - Personal history of pulmonary embolism (ICD-10) History of malignant neoplasm of breast (2004) ?Z85.3 - Personal history of malignant neoplasm of breast (ICD-10) History of frequent urinary tract infections ?Z87.440 - Personal history of urinary (tract) infections (ICD-10) Anxiety ?F41.9 - Anxiety disorder, unspecified (ICD-10) Surgical History (Updated 03/07/24 @ 16:46 by Winsome Kelley MD) Status post left hip replacement ?Z96.642 - Presence of left artificial hip joint (ICD-10) Status post right hip replacement (09/02/23) ?Z96.641 - Presence of right artificial hip joint (ICD-10) History of insertion of stent into coronary artery bypass graft ?Z95.1 - Presence of aortocoronary bypass graft (ICD-10) History of tonsillectomy (1952) ?Z90.89 - Acquired absence of other organs (ICD-10) History of lumbar laminectomy (1975) ?Z98.890 - Other specified postprocedural states (ICD-10) History of cervical spinal surgery (1991) ?Z98.890 - Other specified postprocedural states (ICD-10) History of breast reconstruction (2005) ?Z98.890 - Other specified postprocedural states (ICD-10) History of bilateral mastectomy (11/2004) ?Z90.13 - Acquired absence of bilateral breasts and nipples (ICD-10) Family History Mother Coronary artery disease Father Pulmonary embolism Maternal Grandmother Stomach cancer Social History (Updated 03/07/24 @ 16:42 by Winsome Kelley MD) Narrative: Lives independently with her . does not use illicit drugs, nonsmoker, occasional alcohol consumption What is your current living situation?: I presently have a place to live Problems where you live: no known problems In the past 12 months, utilities in danger of being shut off: no In past 12 months, lack of transportation kept you from medical appts, meetings, work, or getting things needed for daily living: no In the past 12 mos, have been you worried that your food would run out before you had money to buy more?: never true In the past 12 mos, the food you bought just didn't last and you didn't have money to buy more?: never true Highest level of school completed/degree received: decline to answer Smoking Status: Never smoker How often do you have a drink containing alcohol: 2-4 times a month Alcohol type: wine How many standard drinks containing alcohol do you have on a typical day: 1 or 2 AUDIT-C Alcohol total score: 2 Non-prescribed substance use: denies use Caffeine: No How often does anyone, including family, friends and others, physically hurt you : never How often does anyone, including family, friends and others, insult or talk down to you: never How often does anyone, including family, friends and others, threaten you with harm: never How often does anyone, including family, friends and others, scream or curse at you: never Little interest or pleasure in doing things: not at all Feeling down, depressed, or hopeless: not at all service: No Meds Home Medications and Allergies Home Medications Medication Instructions Recorded Confirmed Type nitroglycerin 0.4 mg sublingual 0.4 mg buccal Q5M PRN 10/08/22 03/07/24 History tablet valsartan 40 mg tablet 40 mg PO DAILY 09/02/23 03/07/24 History Allergies Allergy/AdvReac Type Severity Reaction Status Date / Time influenza A (H1N1) virus Allergy Intermediate Chills Verified 03/07/24 06:32 vaccine [id number] [From influenza A (H1N1)] vaccine adjuvant system, Allergy Intermediate Chills Verified 03/07/24 06:32 AS01B lipo [From Shingrix (PF)] varicella-zoster virus Allergy Intermediate Chills Verified 03/07/24 06:32 glycoprotein [From Shingrix (PF)] terconazole Allergy Mild Hives Verified 03/07/24 06:32 metoclopramide Allergy Unknown Verified 03/07/24 06:32 nickel Allergy Unknown Verified 03/07/24 06:32 perfume Allergy Unknown Verified 03/07/24 06:32 Exam Narrative: Exam Narrative: General: No acute distress. Awake alert oriented x3. HEENT: Normocephalic atraumatic, pupils equally round and reactive to light and accommodation. Oropharynx clear. Mucous membranes are moist. No cervical lymphadenopathy, thyromegaly or carotid bruits. No JVD. Cardiovascular: Regular rate and rhythm. No murmurs, gallops, or rubs. Chest: No increased work of breathing. Clear to auscultation bilaterally. No crackles or wheezes. Abdomen: Bowel sounds present. Soft, nondistended, nontender. No hepatosplenomegaly or masses. Extremities: Left hip bandage is clean, dry, and intact. No edema, no cyanosis or clubbing. Skin: No jaundice, no pallor, no rashes. Const: Vital Signs, click to edit/add: Vital Signs - 24 hr 03/07/24 06:34 03/07/24 07:09 03/07/24 07:15 Temperature 97.9 F Pulse Rate 62 56 L 55 L Respiratory Rate 16 16 16 Blood Pressure 141/68 H 133/70 98/41 L Pulse Oximetry 99 97 98 Oxygen Delivery Me thod Room Air Nasal Cannula Nasal Cannula Oxygen Flow Rate 3 3 03/07/24 09:25 03/07/24 09:30 03/07/24 09:35 Temperature 97.6 F Pulse Rate 82 62 60 Respiratory Rate 16 16 16 Blood Pressure 124/52 L 120/55 L 124/58 L Pulse Oximetry 97 97 100 Oxygen Delivery Me thod Room Air Room Air Room Air Oxygen Flow Rate 03/07/24 09:40 03/07/24 09:45 03/07/24 09:50 Temperature 97.6 F Pulse Rate 58 L 62 57 L Respiratory Rate 16 16 16 Blood Pressure 126/57 L 121/64 115/60 Pulse Oximetry 100 100 100 Oxygen Delivery Me thod Room Air Room Air Room Air Oxygen Flow Rate 03/07/24 10:15 03/07/24 10:15 03/07/24 10:30 Temperature 97.6 F 97.7 F 97.7 F Pulse Rate 56 L 55 L 58 L Respiratory Rate 16 16 16 Blood Pressure 116/53 L 114/69 123/58 L Pulse Oximetry 100 100 100 Oxygen Delivery Me thod Room Air Room Air Room Air Oxygen Flow Rate 03/07/24 10:45 03/07/24 11:00 03/07/24 11:30 Temperature 97.7 F 97.7 F 97.7 F Pulse Rate 56 L 68 68 Respiratory Rate 16 16 16 Blood Pressure 121/53 L 123/54 L 129/77 Pulse Oximetry 100 100 100 Oxygen Delivery Me thod Room Air Room Air Room Air Oxygen Flow Rate 03/07/24 12:00 03/07/24 13:00 03/07/24 14:00 Temperature 97.7 F 97.7 F 97.7 F Pulse Rate 68 68 68 Respiratory Rate 16 16 16 Blood Pressure 107/58 L 123/59 L 149/56 H Pulse Oximetry 100 97 97 Oxygen Delivery Me thod Room Air Room Air Room Air Oxygen Flow Rate Assessment and Plan Assessment and plan (1) Status post left hip replacement: Problem comment: - 03/07/24 Dr. Bullock - routine postop cares - has remote history of a PE after childbirth. Had total right hip replacement last year for which she took rivaroxaban for 5 days then aspirin twice a day during the postop. Did not have any events. Continue same regimen for VTE prophylaxis after this surgery Status: Acute (2) Osteoarthritis of left hip: Status: Chronic (3) Hyperlipidemia: Problem comment: Continue atorvastatin Status: Chronic (4) Arteriosclerosis of coronary artery: Problem comment: Continue atorvastatin and valsartan Status: Chronic (5) Anxiety: Problem comment: Uses diazepam about once a month, I have ordered her usual outpatient p.r.n. dosing for while she is in the hospital. Status: Chronic (6) Hypertension: Problem comment: To hold valsartan for tomorrow morning, this can be given if blood pressure is markedly elevated at that time, resume usual home dosing upon discharge Status: Chronic
[2024-03-07] MEDS: SENNOSIDES 1 TAB TABLET 2 TAB PO (21:24)
[2024-03-07] MEDS: ATORVASTATIN CALCIUM 40 MG TABLET PO (21:25)
[2024-03-08] MEDS: ACETAMINOPHEN 500 MG TABLET 1000 MG PO ×2 (00:07→06:26)
[2024-03-08] MEDS: OXYCODONE 5 MG TABLET PO ×3 (00:08→07:56)
[2024-03-08 03:00] VITALS: BP 138/63; PULSE 98; RESP 18; TEMP 36.8; O2SAT 98
[2024-03-08 06:37] LABS: Basophils Percent Auto 0.1 % (0.0-3.0); Immature Granulocytes Pct Auto 0.2 %; Lymphocytes Percent Auto 8.3 % (20-44); Mean Corpuscular HGB Conc 33 gm/dL (32-36); Mean Corpuscular Hemoglobin 32 pg (26-34); Mean Corpuscular Volume 96 fL (80-100); Monocytes Percent Auto 8.1 % (0.0-11.0); Neutrophils Percent Auto 83.3 % (42.0-72.0); Platelet Count* 196 K/uL (140-440); RDW Coefficient of Variation % 13.6 % (11.5-15.5); Red Blood Count 3.14 m/uL (4.00-5.20); White Blood Count* 14.24 K/uL (4.50-11.00)
[2024-03-08 06:38] LABS: Slide Review Reflex No
[2024-03-08 06:47] LABS: Potassium* 4.7 mmol/L (3.6-5.1); Sodium* 139 mmol/L (135-149)
[2024-03-08 06:50] LABS: Blood Urea Nitrogen* 20 mg/dL (7-30); Creatinine* 0.6 mg/dL (0.5-1.5); Est. Creatinine Clearance* 36.68; Estimated Glomerular Filt Rate 94 ml/min
[2024-03-08 07:00] VITALS: PULSE 78; RESP 16
--- NOTE | 2024-03-08 07:01 | PC.NURSE ---
End of shift report [id number]: Pain to left hip well managed with current regimen. Dressing to left hip clean, dry and intact. Left hip trace amount of edema to surgical site. Transfers and ambulates with SBA with walker and gait belt.
--- NOTE | 2024-03-08 07:49 | PM.ORPN ---
Subjective Subjective Time Seen by Provider: 07:49 Date Seen: 03/08/24 Principal diagnosis: Status post left hip replacement Interval history: Radha is comfortable today. She is looking forward to discharging to home. Ortho Exam Narrative Exam Narrative: Alert and oriented x3. Patient is in no acute distress. Converses without labored breathing. Hearing is grossly intact. Ambulates with a walker. Examination of the left lower extremity in her recliner this morning shows the dressing is intact. No erythema or warmth or sign of infection. No ecchymosis. Very minimal soft tissue edema. Able to straight leg raise with ease. Nontender to palpation about the hip and thigh. No edema about the thigh or lower leg. Calves are soft and nontender. CMS intact left lower extremity. Const Vital Signs, click to edit/add: Vital Signs - 24 hr 03/07/24 09:25 03/07/24 09:30 03/07/24 09:35 Temperature 97.6 F Pulse Rate 82 62 60 Pulse Rate [Pulse Oximeter] Respiratory Rate 16 16 16 Blood Pressure 124/52 L 120/55 L 124/58 L Blood Pressure [Right Arm] Pulse Oximetry 97 97 100 Oxygen Delivery Method Room Air Room Air Room Air 03/07/24 09:40 03/07/24 09:45 03/07/24 09:50 Temperature 97.6 F Pulse Rate 58 L 62 57 L Pulse Rate [Pulse Oximeter] Respiratory Rate 16 16 16 Blood Pressure 126/57 L 121/64 115/60 Blood Pressure [Right Arm] Pulse Oximetry 100 100 100 Oxygen Delivery Method Room Air Room Air Room Air 03/07/24 10:15 03/07/24 10:15 03/07/24 10:30 Temperature 97.6 F 97.7 F 97.7 F Pulse Rate 56 L 55 L 58 L Pulse Rate [Pulse Oximeter] Respiratory Rate 16 16 16 Blood Pressure 116/53 L 114/69 123/58 L Blood Pressure [Right Arm] Pulse Oximetry 100 100 100 Oxygen Delivery Method Room Air Room Air Room Air 03/07/24 10:45 03/07/24 11:00 03/07/24 11:30 Temperature 97.7 F 97.7 F 97.7 F Pulse Rate 56 L 68 68 Pulse Rate [Pulse Oximeter] Respiratory Rate 16 16 16 Blood Pressure 121/53 L 123/54 L 129/77 Blood Pressure [Right Arm] Pulse Oximetry 100 100 100 Oxygen Delivery Method Room Air Room Air Room Air 03/07/24 12:00 03/07/24 13:00 03/07/24 14:00 Temperature 97.7 F 97.7 F 97.7 F Pulse Rate 68 68 68 Pulse Rate [Pulse Oximeter] Respiratory Rate 16 16 16 Blood Pressure 107/58 L 123/59 L 149/56 H Blood Pressure [Right Arm] Pulse Oximetry 100 97 97 Oxygen Delivery Method Room Air Room Air Room Air 03/07/24 15:00 03/07/24 15:00 03/07/24 16:00 Temperature Pulse Rate 68 70 Pulse Rate [Pulse Oximeter] Respiratory Rate 16 16 16 Blood Pressure 115/50 L 107/74 Blood Pressure [Right Arm] Pulse Oximetry 100 95 Oxygen Delivery Method Room Air Room Air 03/07/24 19:00 03/07/24 23:00 03/07/24 23:00 Temperature 97.5 F L 98.5 F Pulse Rate Pulse Rate [Pulse Oximeter] 82 82 79 Respiratory Rate 16 16 16 Blood Pressure Blood Pressure [Right Arm] 143/62 H 140/62 H Pulse Oximetry 98 98 Oxygen Delivery Method Room Air Room Air 03/08/24 03:00 Temperature 98.3 F Pulse Rate Pulse Rate [Pulse Oximeter] 98 Respiratory Rate 18 Blood Pressure Blood Pressure [Right Arm] 138/63 Pulse Oximetry 98 Oxygen Delivery Method Room Air Assessment and Plan Assessment and plan (1) Status post left hip replacement: Problem details: - 03/07/24 Dr. Bullock Status: Acute Assessment and Plan: Plan for discharge is today, and when they meets discharge criteria. DVT prophylaxis upon discharge, Xarelto 10 mg daily for 4 days, then aspirin 81 mg twice daily for 30 days. Remove dressing 1 week. Observe wound and phone Orthopedics with any questions or concerns Use Ice on operative hip unrestricted. Return to clinic in 1 week with PA for a wound check Return to clinic in 6 weeks with surgeon Minimize narcotic use. Wean off and discontinue soon as possible. Activities as tolerated. No strenuous activity. Attend outpt PT
[2024-03-08] MEDS: SENNOSIDES 1 TAB TABLET 2 TAB PO (07:58)
[2024-03-08] MEDS: RIVAROXABAN 10 MG TABLET PO (07:58)
[2024-03-08 08:01] VITALS: BP 147/52; PULSE 78; RESP 16; TEMP 36.1; O2SAT 97
--- NOTE | 2024-03-08 13:36 | PC.NURSE ---
End of shift-- Very pleasant and cooperative, alert and oriented patient discharged to home via wheelchair at approximately 1030. VSS and pt is afebrile. SPO2 maintained >90% on RA. Pain appeared well managed with Oxycodone and Tylenol. Dressing to left hip is C/D/I and CMS WNL. LS CTA. She denied nausea and tolerated a regular diet without difficulty. Discharge education provided including diagnosis info, symptoms to report, medications and follow up plan. No further questions asked. SL was removed with tip intact.
== END 2024-03-08 10:56 | disposition home or self-care (01) ==
LOC: OR 06:52 → MEDSURG 10:06
PROVIDERS: PCP Internal Medicine; Visit Provider Orthopaedic Surgery
PROC: (CPT 27130; principal; 2024-03-07 07:15)
DX: M16.12 Unilateral primary osteoarthritis, left hip (principal); G89.18 Other acute postprocedural pain; I25.10 Atherosclerotic heart disease of native coronary artery without angina pectoris; Z96.641 Presence of right artificial hip joint; F41.9 Anxiety disorder, unspecified; I12.9 Hypertensive chronic kidney disease with stage 1 through stage 4 chronic kidney disease, or unspecified chronic kidney disease; N18.9 Chronic kidney disease, unspecified
CPT/HCPCS: 27130; 01214; 36415; 64450; 73501; 76942; 82565; 84132; 84295; 84520; 85025; 86850; 86900; 86901; 97110; 97116; 97161; 97165; 97530; 97535; 99100; A9270; C1776; J0330; J0690; J1100; J1170; J2250; J2310; J2371; J2405; J2704; J2795; J3010; J3490; J7120

== ENCOUNTER 2024-05-18 08:45 | Outpatient (RCR) | payer MEDICARE, SELFPAY ==
--- NOTE | 2024-03-16 09:52 | PT.OPEX ---
PT [facility] Eval initial eval requires signature PT [facility] Eval Start: 03/16/24 07:51 Freq: Status: Active Protocol: Document 03/16/24 07:51 TRESA (Rec: 03/16/24 09:50 TRESA [id number]) E-signed By Gabriel Rios DPT Physical Therapy Outpatient Evaluation Insurance Information Recert Due Date 06/09/24 Insurance Name Medicare B Medical Diagnosis L MARLO dos 03/07/24 Treating Diagnosis L hip pain muscle weakness Referring MD [email or web address] [email or web address] Subjective Subjective Radha comes into clinic 1.5 weeks post L MARLO. States she is having some more pain compared to her R MARLO performed several months ago. Feels like she is able to sleep more throughout the night. However she does tend to feel more stiff quicker and at times feels she has a hitch in her gait that can be troublesome. Also has a history of sciatica type symptoms in her left leg so she is starting to feel those symptoms flare up. Also dealing with more cramping in the morning. Pain Comments Current Work Status Retired Precautions Treatment Precautions/Contraindications heart condition htn hx cancer latex allergy allergies Objective Other/Pertinent Objective GAIT- ambulates with walking with antalgic pattern decreased step length HIP ROM Flexion: 80 degrees before pain Extension: lacking 5 degrees before pain Internal Rotation: 15-20 degrees External Rotation 15-20 degrees Abduction 35-40 degrees LLE MMT: deferred standard testing SLR unable to perform quad set moderate strength contraction Assessment Assessment/Impression POST-OP Patient presents with signs and symptoms consistent with diagnosis of , s/p week post operative. Rehab potential is. Gunter impairments include: decreased ROM and strength of the extremity, poor balance and compensatory gait patterning, pain/limitations with functional activities such as squatting, walking, and climbing stairs. Skilled PT is required to address these gunter impairments and to provide and progress with an appropriate home exercise program. Plan of Care Rehabilitation Potential Good Physical Therapy Goals MARLO GOALS STG (within 6 weeks) 1) Pt will ambulate at least 30 minutes with SPC device, minimal antalgic gait for improved community mobility LTG: (within 12 weeks) 1) Pt will be indep with HEP for shelter management of pain/symptoms 2) Pt will improve hip AROM at least 0-90* for improved sit to stand transfers 3) Patient will ascend/descend at least 12 steps using single rail and reciprocal pattern to improve ease of mobility at home/community 4)Pt will ambulate at least 20 -30 minutes with no assistive device, minimal antalgic gait for improved community mobility Coordination/Communication With Referral Source Treatment Plan/Direct Interventions Gait Training,Joint Mobilization,Manual Therapy, Neuromuscular Re-ed,Self-Care/ Home Management,Therapeutic Activities,Therapeutic Exercises Frequency/Duration 1-2 visits a week for 6-12 weeks Patient Will Be Discharged From Therapy Completion of LTG(s), Independent w/HEP, Independently Progressing Evaluation Billing Untimed Code Treatment Minutes 15 Complexity Low Certification Information Physician Comment/Change : Physician NPI Number #
== END 2024-07-25 15:23 | disposition home or self-care (01) ==
PROVIDERS: PCP Internal Medicine; Visit Provider Orthopaedic Surgery
DX: M16.12 Unilateral primary osteoarthritis, left hip (principal); Z51.89 Encounter for other specified aftercare
CPT/HCPCS: 97110; 97116; 97140; 97161

== ENCOUNTER 2024-05-25 10:56 | Outpatient (CLI) | payer MEDICARE, SELFPAY ==
--- OUTSIDE RECORDS SUMMARY | 2024-05-29 09:14 | XMS_ITS | Clinical Summary ---
Author Organization [facility] Address [place], [place] [address] Care Team Providers Care Fund Director Name Role Phone Andre Love MD Primary [...] Maternal Grandmother stomach cancer Heart Disease Mother [facility] at 78 Relation Name Status Comments Father [...] Outcome GA Total Labor Labor/2nd/3rd Weight Sex Type Anes PTL Ashia A1 A5 Name Clin Term Term SAB Last Filed Vital Signs [...] 65+ 07/09/2024 Medical Devices Implanted Type Area Stiff Leg Derrick Operator Device Identifier Shelf Expiration Date Model / Serial / Lot [id number] lnt Mammary [id number] [[id number]] [[id number]] Implanted:Qty: 1 on 10/05/2006 at [facility] Explanted:at [facility] (Quantity not on file) [employer] [id number] / [id number] / [id number] lnt Mammary [id number] [[id number] Implanted:Qty: 1 on 10/05/2006 at [facility] Explanted:at [facility] (Quantity not on file) [employer] [facility] [id number] / [id number] / [id number] Procedures Procedure Name Priority Date/Time Associated Diagnosis Comments LIPID PANEL Early AM 05/25/2018 4:54 AM CDT from Last 3 Months or Most Recently Relevant to Health Maintenance Results * Lipid Panel - In AM (05/25/2018 4:54 AM CDT) CHOLESTEROL,TOTAL 173 100 - 199 mg/dL 05/25/2018 5:48 AM CDT [employer] [facility] TRIGLYCERIDES 79 <150 mg/dL 05/25/2018 5:48 AM CDT [facility] Private Outlet [facility] HDL CHOLESTEROL 52 >40 mg/dL 8 5:48 AM CDT [facility] Private Outlet [facility] NON-HDL CHOLESTEROL 121 <145 mg/dl 05/25/2018 5:48 AM CDT [facility] Private Outlet [facility] CHOL/HDL RATIO 3.33 <4.50 05/25/2018 5:48 AM CDT [facility] Private Outlet [facility] LDL CHOLESTEROL 105 <=130 mg/dL 05/25/2018 5:48 AM CDT [facility] PROVIDER ORDERED STATUS RANDOM 05/25/2018 5:48 AM CDT [facility] Private Outlet [facility] Blood BLOOD SPECIMEN / Unknown Butterfly / Unknown 05/25/2018 4:54 AM CDT 05/25/2018 5:05 AM CDT Dandy Shah MD CHEMISTRY [facility] [address] [place] [address], [place] from Last 3 Months or Most [...] 10:21 AM 10/05/2006 1:27 PM Care Teams Fund Director Relationship Specialty Start Date End Date Andre Love MD [address] [place] [id number] PCP - General Internal Medicine 05/30/18
== END 2024-05-25 10:57 | disposition home or self-care (01) ==
LOC: NFLDREF 05-29 09:13
PROVIDERS: PCP Internal Medicine; Referring Provider Internal Medicine; Visit Provider Internal Medicine
DX: E78.5 Hyperlipidemia, unspecified (principal)
CPT/HCPCS: 80061

== ENCOUNTER 2024-11-10 11:31 | Outpatient (CLI) | payer MEDICARE, SELFPAY | END 2024-11-10 11:32 | disposition home or self-care (01) | LOC: NFLDREF 11:31 | PROVIDERS: PCP Internal Medicine; Visit Provider Registered Nurse | DX: L65.9 Nonscarring hair loss, unspecified (principal) | CPT/HCPCS: 84443 ==